=== PATIENT | male | born 1950 | race Caucasian/White ===

== ENCOUNTER → 2020-06-08 | Outpatient (CLI) | payer MEDICARE ==
[~2020-06-08] MED LIST: ASPIRIN CHEW81 MG PO; ATENOLOL25 MG; ATENOLOL50 MG PO; BENICAR40 MG PO; BENICAR5 MG; CYCLOBENZAPRINE10 MG PO; FENOFIBRATE160 MG PO; FENOFIBRATE67 MG; FLONASE16 GM; LEVOCETIRIZINE D5 MG PO; LORAZEPAM1 MG PO; MILK OF MA400 MG/5 M PO; MIRAPEX0.25 MG PO; MUCINEX DM ER1 EACH PO; OMEPRAZOLE20 MG PO; OMEPRAZOLE5 GM; VYTORIN 10-101 EACH; VYTORIN 10-201 EACH PO
== END ==
LOC: MRI 13:38
PROVIDERS: ATTEND Specialist
DX: M54.41 Lumbago with sciatica, right side (principal)
CPT/HCPCS: 72148

== ENCOUNTER → 2020-12-24 | Outpatient (CLI) | payer MEDICARE | LOC: RAD 15:17 | PROVIDERS: ATTEND Internal Medicine | DX: R91.8 Other nonspecific abnormal finding of lung field (principal) | CPT/HCPCS: 71046 ==

== ENCOUNTER → 2022-03-31 | Outpatient (CLI) | payer MEDICARE | LOC: MRI 08:46 | PROVIDERS: ATTEND Internal Medicine | DX: M54.16 Radiculopathy, lumbar region (principal); R05.3 Chronic cough | CPT/HCPCS: 71046; 72148 ==

== ENCOUNTER 2022-05-07 14:00 | Outpatient (RCR) | payer MEDICARE | END 2022-05-13 | LOC: PT 14:00 | PROVIDERS: ATTEND Neurological Surgery | DX: M48.062 Spinal stenosis, lumbar region with neurogenic claudication (principal) ==